=== PATIENT | female | born 1950 ===

== ENCOUNTER 2016-12-05 12:34 | Outpatient (CLI) | payer BC ==
--- NOTE | 2016-12-06 13:32 | Magnetic Resonance Report ---
BILATERAL BREAST MRI WITHOUT AND WITH CONTRAST: 12/05/16 12:34:00 CLINICAL: A new 2-3 mm focal asymmetry at 3 o'clock left breast on screening mammogram and no correlating finding on ultrasound. COMPARISON:10/09/16 left diagnostic mammogram and 10/21/16 left breast ultrasound from [facility], [place], [place]. TECHNIQUE: Axial 1.0-mm T1 without, axial high resolution 2.0-mm T2 and axial 1.0-mm dynamic Vibrant high-resolution postcontrast T1 fat saturation sequences on a 1.5 Beena magnet. The examination was performed with an 8 channel dedicated [place] breast coil. Post processing with CAD and subtraction was performed on an [employer] workstation. 18.0 cc of Multihance was injected without incident for the contrast portion of the exam. Consent was obtained prior to the administration of the contrast. FINDINGS: Right: Minimal background parenchymal enhancement. No mass or suspicious enhancement. The right breast is smaller than the left. No suspicious lymph nodes. Left: Minimal background parenchymal enhancement. An oval smooth enhancing mass or lymph node at 3:30 o'clock 7.5 cm from the nipple measures 2.4 x 2.1 x 1.9 mm. It correlates with the mammographic asymmetry and demonstrates heterogeneous enhancement with 147% peak enhancement, 57% type II plateau waveform and no type III washout. The greatest blood flow is within the center. No other mass or suspicious enhancement of the left breast. No suspicious lymph nodes. IMPRESSION: A probably benign 2.4 mm intraparenchymal lymph node or mass at 3 o'clock left breast. I favor lymph node because of the shape and its greater central blood flow. In absence of central fat does not dissuade me because of its small size. Recommend six month mammographic followup and consider a left stereotactic biopsy if it becomes more suspicious in six months. RIGHT BI-RADS 1 -- Negative LEFT BI-RADS 3 -- Probably Benign
== END 2016-12-05 12:35 | disposition home or self-care (01) ==
LOC: SPVIMAG 12:34
DX: N64.89 Other specified disorders of breast (principal); R92.8 Other abnormal and inconclusive findings on diagnostic imaging of breast
CPT/HCPCS: 0159T; A9577; C8908; 77059